=== PATIENT | male | born 1995 | race Caucasian/White ===

== ENCOUNTER 2017-07-08 23:37 | Emergency (ER) | payer OTHER ==
[2017-07-08] MEDS ORDERED: diphenhydrAMINE INJ 50 MG/ML VIAL IVP STA (23:59)
[2017-07-08] MEDS ORDERED: METOCLOPRAMIDE 10 MG/2 ML VIAL IVP STA (23:59)
[2017-07-08] MEDS ORDERED: SODIUM CHLORIDE 0.9% 1,000 ML IV ONE (23:59)
[2017-07-09 00:11] LABS: BASOPHILS % (AUTO) 0.2 %; EOSINOPHILS % (AUTO) 0.1 %; HGB - HEMOGLOBIN 16.2 g/dL (14.0-18.0); LYMPHOCYTES # (AUTO) 1.1 10^3/uL (1.5-3.5); LYMPHOCYTES % (AUTO) 9.1 %; MEAN CORPUSCULAR HEMOGLOBIN 30.7 pg (27.0-31.0); MEAN CORPUSCULAR HGB CONC 34.8 g/dL (32.0-36.0); MEAN CORPUSCULAR VOLUME 88.2 fL (80.0-94.0); MEAN PLATELET VOLUME 8.6 fL (7.4-11.4); MONOCYTES # (AUTO) 0.6 10^3/uL (0.0-1.0); MONOCYTES % (AUTO) 4.7 %; NEUTROPHILS % (AUTO) 85.9 %; PLT - PLATELET COUNT 226 10^3/uL (130-450); RED BLOOD COUNT 5.28 10^6/uL (4.70-6.10); RED CELL DISTRIBUTION WIDTH 13.3 % (12.0-15.0); WHITE BLOOD COUNT 11.7 x10^3/uL (4.8-10.8)
[2017-07-09 00:24] LABS: ALBUMIN 5.4 g/dL (3.2-5.5); ALBUMIN/GLOBULIN RATIO 1.9 (1.0-2.2); BILIRUBIN,TOTAL 2.5 mg/dL (0.2-1.0); CALCIUM 9.7 mg/dL (8.5-10.3); CREATININE 0.9 mg/dL (0.6-1.2); MAGNESIUM 1.9 mg/dL (1.7-2.8); PHOSPHORUS 3.6 mg/dL (2.5-4.6); TOTAL PROTEIN 8.3 g/dL (6.7-8.2)
--- NOTE | 2017-07-09 00:41 | CT Preliminary Report ---
Exam: CT HEAD W/O IMPRESSION: Negative CT head without contrast. [facility] SITE ID: [id number]
--- NOTE | 2017-07-09 00:42 | CT Report ---
EXAM: CT HEAD EXAM DATE: 07/09/2017 12:23 AM. CLINICAL HISTORY: Headache. Left hand weakness. COMPARISON: None. TECHNIQUE: Multiaxial CT images were obtained from the foramen magnum to the vertex. Reformats: Coron al. IV contrast: None. In accordance with CT protocol optimization, one or more of the following dose reduction techniques w ere utilized for this exam: automated exposure control, adjustment of mA and/or KV based on patient s ize, or use of iterative reconstructive technique. FINDINGS: Parenchyma: No intraparenchymal hemorrhage. No evidence of mass, midline shift, or CT findings of inf arction. [place]-white differentiation is distinct. Extraaxial Spaces: Normal for age. No subdural or epidural collections identified. Ventricles: Normal in size and position. Sinuses and Orbits: Imaged paranasal sinuses, orbits, and mastoids show no significant abnormality. Bones: No evidence of fracture or calvarial defect. Other: None. IMPRESSION: Negative CT head without contrast. [facility] Referring Provider Line: [phone] SITE ID: [id number]
[2017-07-09] MEDS ORDERED: KETOROLAC 60 MG/2 ML VIAL IVP STA (01:14)
[2017-07-09] MEDS ORDERED: ACETAMINOPHEN 500 MG TABLET PO STA (01:52)
--- NOTE | 2017-07-09 02:08 | ED Physician Documentation ---
PD HPI HEADACHE - Stated complaint Stated Complaint: HEADACHE,L SIDE WEAKNESS - Chief complaint Chief Complaint: Neuro - History obtained from History obtained from: Patient, Friend - History of Present Illness Timing - onset: How many hours ago (3) Timing - onset during: Rest Timing - details: Gradual onset, Still present Location: Front, Right Quality: Aching, Stabbing Associated symptoms: Nausea. No: Fever, Stiff neck, Vomiting, Weakness, Numbness Improved by: Rest, Dark room Worsened by: Light Contributing factors: No: Anticoagulated, Hypertension Similar symptoms before: No diagnosis Recently seen: Not recently seen - Additional information Additional information: Patient is a 22 year old male with no significant past medical history who is presenting to the emergency department for headache. patient states that it started slowly about three hours ago. Patient states that it has become progressively worse. Patient states that his hand was cramping and that his right hand keeps wanting to rest up by his neck. Upon initial evaluation in the emergency department patient is well appearing and moving all extremities with no neurological deficits. Review of Systems Constitutional: denies: Fever, Chills Eyes: reports: Photophobia Ears: reports: Reviewed and negative Nose: reports: Reviewed and negative Throat: reports: Reviewed and negative Cardiac: denies: Chest pain / pressure, Palpitations Respiratory: denies: Dyspnea, Cough, Wheezing GI: reports: Nausea. denies: Abdominal Pain, Vomiting : reports: Reviewed and negative Skin: denies: Rash, Lesions, Abrasion (s) Musculoskeletal: reports: Extremity pain. denies: Neck pain, Back pain Neurologic: reports: Numbness, Headache. denies: Syncope, Head injury, LOC Immunocompromised: denies: Immunocompromised PD PAST MEDICAL HISTORY - Past Medical History Past Medical History: No - Past Surgical History Past Surgical History: No - Present Medications Home Medications: Ambulatory Orders Medication Instructions Recorded Confirmed No Known Home Medications [No 07/08/17 07/08/17 Known Home Medications] - Allergies Allergies/Adverse Reactions: Allergies Allergy/AdvReac Type Severity Reaction Status Date / Time No Known Drug Allergies Allergy Verified 07/08/17 23:45 - Social History Does the pt smoke?: Yes Smoking Status: Current every day smoker Does the pt drink ETOH?: Yes Does the pt have substance abuse?: No - Immunizations Immunizations are current?: Yes - POLST Patient has POLST: No PD ED PE NORMAL - Vitals Vital signs reviewed: Yes - General General: Alert and oriented X 3, No acute distress - HEENT HEENT: Atraumatic, Moist mucous membranes - Neck Neck: Supple, no meningeal sign - Cardiac Cardiac: RRR, No murmur - Respiratory Respiratory: No respiratory distress - Abdomen Abdomen: Soft, Non tender, Non distended - Derm Derm: Normal color, Warm and dry, No rash - Extremities Extremities: No deformity, No tenderness to palpate, Normal ROM s pain - Neuro Neuro: Alert and oriented X 3, No motor deficit, Normal speech, Other (no right sided deficit, patient has full rom, full hip hop performers strength and full sensation) Eye Opening: To Voice Motor: Obeys Commands Verbal: Oriented GCS Score: 14 Results - Vitals Vitals: Vital Signs - 24 hr 07/08/17 07/09/17 23:42 02:03 Temperature 36.4 C L Heart Rate 82 78 Respiratory 18 18 Rate Blood Pressure 105/77 126/70 O2 Saturation 99 98 Oxygen O2 Source Room air - Labs Labs: Laboratory Tests 07/08/17 07/08/17 23:58 23:58 WBC 11.7 H RBC 5.28 Hgb 16.2 Hct 46.6 MCV 88.2 MCH 30.7 MCHC 34.8 RDW 13.3 Plt Count 226 MPV 8.6 Neut # 10.0 H Lymph # 1.1 L [place] # 0.6 Eos # 0.0 Baso # 0.0 Absolute Nucleated RBC 0.00 Nucleated RBC % 0.0 Sodium 136 Potassium 4.3 Chloride 99 L Carbon Dioxide 25 Anion Gap 12.0 BUN 18 Creatinine 0.9 Estimated GFR (MDRD) 105 Glucose 128 H Calcium 9.7 Phosphorus 3.6 Magnesium 1.9 Total Bilirubin 2.5 H AST 67 H ALT 57 Alkaline Phosphatase 56 Total Protein 8.3 H Albumin 5.4 Globulin 2.9 Albumin/Globulin Ratio 1.9 Lipase 11 L - Rads (name of study) ct head Radiology: Final report received (normal) PD MEDICAL DECISION MAKING - ED course Complexity details: reviewed old records, reviewed results, re-evaluated patient , considered differential, d/w patient ED course: patient was seen and examined at bedside. patient was well appearing and in no acute distress. IV access was gained and labs were drawn. patient had complete neurological function. CT was ordered due to patient's various complaints. [place] subarachnoid score was 0. patient was treated with toradol , bendaryl and reglan, as well as IV fluids. Patient was sent for imaging. When patient returned the results were reviewed. there was no acute abnormalities. Patient reported that his pain still persisted and was treated with tylenol 1000mg. Patient was well appearing with no sign of meniingitis. Patient required no further work up and was stable for discharge with outpatient follow up. Departure - Departure Disposition: 01 Home, Self Care Clinical Impression: Migraine Condition: Good Instructions: ED Headache Migraine Follow-Up: primary,care provider [Other] - As Needed Comments: Your diagnostics today were within normal limits. there were no major abnormalities on your CT or blood work. The two most important things you can do is to stay well hydrated and and get plenty of slepp. You can take motrin or tylenol as needed for pain, or excedrin. You should follow up with your doctor if your symptoms worsen or become more frequent.
[2017-07-09 02:28] VITALS: BP 115/56
== END 2017-07-09 02:28 | disposition home or self-care (01) ==
LOC: ED 23:37
DX: G43.909 Migraine, unspecified, not intractable, without status migrainosus (principal); F17.200 Nicotine dependence, unspecified, uncomplicated
CPT/HCPCS: 36415; 70450; 80053; 83690; 83735; 84100; 85025; 96361; 96374; 96375; 99283; 99284; A9270; J1200; J2765; 85610; 85730

== ENCOUNTER 2017-07-12 20:13 | Emergency (ER) | payer OTHER ==
[2017-07-12 20:59] LABS: MUDS CUTOFF CONCENTRATIONS CUTOFF CONC BELOW:
[2017-07-12 21:09] LABS: BILIRUBIN,URINE NEGATIVE (NEGATIVE); CLARITY,URINE CLEAR (CLEAR); GLUCOSE, URINE (UA) NEGATIVE (NEGATIVE); KETONES,URINE (UA) NEGATIVE (NEGATIVE); LEUKOCYTE ESTERASE, URINE NEGATIVE (NEGATIVE); NITRITE,URINE NEGATIVE (NEGATIVE); OCCULT BLOOD,URINE NEGATIVE (NEGATIVE); PROTEIN,URINE NEGATIVE (NEGATIVE); UROBILINOGEN,URINE 0.2 (NORMAL) E.U./dL (NORMAL)
[2017-07-12 21:11] LABS: AMPHETAMINE SCREEN,URINE NEGATIVE (NEGATIVE); BENZODIAZEPINES SCREEN, URINE NEGATIVE (NEGATIVE); COCAINE SCREEN URINE NEGATIVE (NEGATIVE); METHADONE SCREEN, URINE NEGATIVE (NEGATIVE); METHAMPHETAMINES SCREEN, URINE NEGATIVE (NEGATIVE); OPIATE SCREEN, URINE NEGATIVE (NEGATIVE); OXYCODONE SCREEN, URINE NEGATIVE (NEGATIVE); PROPOXYPHENE SCREEN, URINE NEGATIVE (NEGATIVE); TRICYCLIC ANTIDEPRESSANT,URINE NEGATIVE (NEGATIVE)
[2017-07-12 22:05] LABS: BASOPHILS % (AUTO) 0.4 %; EOSINOPHILS % (AUTO) 0.3 %; HGB - HEMOGLOBIN 15.7 g/dL (14.0-18.0); LYMPHOCYTES # (AUTO) 1.4 10^3/uL (1.5-3.5); MEAN CORPUSCULAR HEMOGLOBIN 29.3 pg (27.0-31.0); MEAN CORPUSCULAR HGB CONC 33.3 g/dL (32.0-36.0); MEAN PLATELET VOLUME 8.3 fL (7.4-11.4); MONOCYTES # (AUTO) 0.6 10^3/uL (0.0-1.0); MONOCYTES % (AUTO) 5.6 %; NEUTROPHILS # (AUTO) 9.3 10^3/uL (1.5-6.6); NEUTROPHILS % (AUTO) 81.7 %; PLT - PLATELET COUNT 229 10^3/uL (130-450); RED BLOOD COUNT 5.35 10^6/uL (4.70-6.10); WHITE BLOOD COUNT 11.4 x10^3/uL (4.8-10.8)
[2017-07-12 22:19] LABS: ALBUMIN 5.1 g/dL (3.2-5.5); ALBUMIN/GLOBULIN RATIO 1.8 (1.0-2.2); ALKALINE PHOSPHATASE 52 IU/L (42-121); ALT ALANINE AMINOTRANSFERASE 33 IU/L (10-60); AST ASPARTATE AMINOTRANSFERASE 25 IU/L (10-42); BILIRUBIN,TOTAL 1.2 mg/dL (0.2-1.0); BUN - BLOOD UREA NITROGEN 13 mg/dL (6-20); CALCIUM 9.3 mg/dL (8.5-10.3); CARBON DIOXIDE - CO2 26 mmol/L (21-32); CHLORIDE 101 mmol/L (101-111); CK- CREATINE KINASE 138 IU/L (22-269); CREATININE 0.9 mg/dL (0.6-1.2); GFR - MDRD 105 (>89); GLUCOSE 140 mg/dL (70-100); SALICYLATE < 6.0 mg/dL; SODIUM 137 mmol/L (135-145)
[2017-07-12 22:21] LABS: ACETAMINOPHEN < 10 ug/mL (10-30); LIPASE < 10 U/L (22-51)
[2017-07-12] MEDS ORDERED: SODIUM CHLORIDE 0.9% 1,000 ML IV ONE (23:22)
[2017-07-12] MEDS ORDERED: diphenhydrAMINE INJ 50 MG/ML VIAL IVP STA (23:22)
[2017-07-12] MEDS ORDERED: KETOROLAC 60 MG/2 ML VIAL IVP STA (23:22)
[2017-07-12] MEDS ORDERED: METOCLOPRAMIDE 10 MG/2 ML VIAL IVP STA (23:22)
[2017-07-13] MEDS ORDERED: SODIUM CHLORIDE 0.9% 1,000 ML IV ONE (01:25)
[2017-07-13] MEDS ORDERED: HALOPERIDOL 5 MG/ML VIAL IVP ONE (01:25)
--- NOTE | 2017-07-13 02:53 | ED Physician Documentation ---
PD HPI HEADACHE - Stated complaint Stated Complaint: CONFUSION - Chief complaint Chief Complaint: Neuro - History obtained from History obtained from: Patient - History of Present Illness Timing - onset: How many days ago (4) Timing - onset during: Rest Timing - details: Gradual onset, Intermittant Quality: Throbbing. No: Thunderclap Associated symptoms: No: Fever, Stiff neck, Nausea, Vomiting Improved by: Rest, Dark room Worsened by: Light, Noise Similar symptoms before: Work up / diagnostics, Treatment Recently seen: Emergency Dept - Additional information Additional information: Patient is a 22 year old male who is presenting to the emergency department for headache and confusion. patient was seen in the emergency department a few days prior for headache and hand numbness. Diagnostics were all within normal limits and patient was discharged in stable condition. patient states that he felt better for a couple of days but then he developed headache today and confusion. Although there is reported confusion patient is alert and oriented X 3. Patient was able to answer questions appropriately. Review of Systems Constitutional: denies: Fever, Chills Eyes: reports: Photophobia Ears: denies: Ear pain Nose: reports: Reviewed and negative Throat: reports: Reviewed and negative Cardiac: denies: Chest pain / pressure, Palpitations Respiratory: denies: Cough GI: denies: Nausea, Vomiting : reports: Reviewed and negative Neurologic: reports: Difficulty speaking, Headache. denies: Focal weakness, Numbness, Head injury PD PAST MEDICAL HISTORY - Past Surgical History Past Surgical History: No - Present Medications Home Medications: Ambulatory Orders Medication Instructions Recorded Confirmed No Known Home Medications [No 07/08/17 07/08/17 Known Home Medications] - Allergies Allergies/Adverse Reactions: Allergies Allergy/AdvReac Type Severity Reaction Status Date / Time No Known Drug Allergies Allergy Verified 07/08/17 23:45 - Social History Does the pt smoke?: Yes Smoking Status: Current every day smoker Does the pt drink ETOH?: Yes Does the pt have substance abuse?: No - Immunizations Immunizations are current?: Yes - POLST Patient has POLST: No PD ED PE NORMAL - Vitals Vital signs reviewed: Yes - General General: Alert and oriented X 3, No acute distress, Well developed/nourished - HEENT HEENT: Atraumatic, PERRL - Neck Neck: Supple, no meningeal sign - Cardiac Cardiac: RRR - Respiratory Respiratory: No respiratory distress - Abdomen Abdomen: Soft, Non tender, Non distended - Derm Derm: Normal color, Warm and dry - Extremities Extremities: No deformity - Neuro Neuro: Alert and oriented X 3, 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, No motor deficit, No sensory deficit, Normal speech Eye Opening: Spontaneous Motor: Obeys Commands Verbal: Oriented GCS Score: 15 PD ED PE EXPANDED - General General: Alert, No acute distress - HEENT HEENT: Dry mucous membranes Results - Vitals Vitals: Vital Signs - 24 hr 07/12/17 07/12/17 07/12/17 20:15 21:24 23:46 Temperature 36.0 C L Heart Rate 55 L 56 L 79 Respiratory 18 15 22 Rate Blood Pressure 123/72 124/83 H 120/79 O2 Saturation 99 98 99 07/13/17 07/13/17 07/13/17 00:42 01:18 02:16 Temperature Heart Rate 77 66 75 Respiratory 20 21 20 Rate Blood Pressure 145/87 H 110/79 92/46 L O2 Saturation 98 97 96 Oxygen O2 Source Room air - EKG (time done) 2034 Rate: Rate (enter#) (54) Rhythm: NSR [place]: Normal Ischemia: ST elevation c/w repol Compare to prior EKG: Old EKG unavailable - Labs Labs: Laboratory Tests 07/12/17 07/12/17 07/12/17 20:36 21:52 21:52 WBC 11.4 H RBC 5.35 Hgb 15.7 Hct 47.1 MCV 88.0 MCH 29.3 MCHC 33.3 RDW 13.0 Plt Count 229 MPV 8.3 Neut # 9.3 H Lymph # 1.4 L [place] # 0.6 Eos # 0.0 Baso # 0.0 Absolute Nucleated RBC 0.01 Nucleated RBC % 0.1 Sodium 137 Potassium 3.6 Chloride 101 Carbon Dioxide 26 Anion Gap 10.0 BUN 13 Creatinine 0.9 Estimated GFR (MDRD) 105 Glucose 140 H Lactic Acid Calcium 9.3 Total Bilirubin 1.2 H AST 25 ALT 33 Alkaline Phosphatase 52 Total Creatine Kinase 138 Total Protein 8.0 Albumin 5.1 Globulin 2.9 Albumin/Globulin Ratio 1.8 Lipase < 10 L TSH Urine Color LT. YELLOW Urine Clarity CLEAR Urine pH 6.0 Ur Specific [place] 1.025 Urine Protein NEGATIVE Urine Glucose (UA) NEGATIVE Urine Ketones NEGATIVE Urine Occult Blood NEGATIVE Urine Nitrite NEGATIVE Urine Bilirubin NEGATIVE Urine Urobilinogen 0.2 (NORMAL) Ur Leukocyte Esterase NEGATIVE Ur Microscopic Review NOT INDICATED Urine Culture Comments NOT INDICATED Salicylates < 6.0 Urine Opiates Screen NEGATIVE Ur Oxycodone Screen NEGATIVE Urine Methadone Screen NEGATIVE Ur Propoxyphene Screen NEGATIVE Acetaminophen < 10 L Ur Barbiturates Screen NEGATIVE Ur Tricyclics Screen NEGATIVE Ur Phencyclidine Scrn NEGATIVE Ur Amphetamine Screen NEGATIVE U Methamphetamines Scrn NEGATIVE U Benzodiazepines Scrn NEGATIVE Urine Cocaine Screen NEGATIVE U Cannabinoids Screen NEGATIVE Ethyl Alcohol < 5.0 07/12/17 07/12/17 21:52 21:52 WBC RBC Hgb Hct MCV MCH MCHC RDW Plt Count MPV Neut # Lymph # [place] # Eos # Baso # Absolute Nucleated RBC Nucleated RBC % Sodium Potassium Chloride Carbon Dioxide Anion Gap BUN Creatinine Estimated GFR (MDRD) Glucose Lactic Acid 1.4 Calcium Total Bilirubin AST ALT Alkaline Phosphatase Total Creatine Kinase Total Protein Albumin Globulin Albumin/Globulin Ratio Lipase TSH 0.72 Urine Color Urine Clarity Urine pH Ur Specific [place] Urine Protein Urine Glucose (UA) Urine Ketones Urine Occult Blood Urine Nitrite Urine Bilirubin Urine Urobilinogen Ur Leukocyte Esterase Ur Microscopic Review Urine Culture Comments Salicylates Urine Opiates Screen Ur Oxycodone Screen Urine Methadone Screen Ur Propoxyphene Screen Acetaminophen Ur Barbiturates Screen Ur Tricyclics Screen Ur Phencyclidine Scrn Ur Amphetamine Screen U Methamphetamines Scrn U Benzodiazepines Scrn Urine Cocaine Screen U Cannabinoids Screen Ethyl Alcohol PD MEDICAL DECISION MAKING - ED course Complexity details: reviewed old records, reviewed results, re-evaluated patient , considered differential, d/w patient ED course: Patient was seen and examined at bedside. patient was awake, alert and oriented with no neurological deficits. patient would mumble incoherent words but then when asked questions would answer appropriately. Patient was not ill or toxic appearing. IV access was gained and labs were drawn. Patient was told that an LP might be required, he stated that he would rather try the fluids and medications first. patient was treated with toradol, reglan, benadryl and fluid bolus. Upon re-evaluation patient stated that his headache was still there but was down to 5-6. Patient was treated with a second bolus and Haldol. Patient was observed for another two hours while he slept. patient 's headache resolved. While serious etiologies to the patient's headache were considered they were unlikely. Patient required no further inpatient work up and was stable for discharge with outpatient follow up. Departure - Departure Disposition: 01 Home, Self Care Clinical Impression: Migraine Condition: Good Instructions: ED Headache Migraine Follow-Up: Primary, care provider [Other] - Within 3 Days Comments: Your diagnostics today were within normal limits. Two of the biggest triggers for headaches are dehydration and lack of sleep. It is important that you stay well hydrated and that you get plenty of sleep. You should keep a headache journal, writing down things that you ate or activities you did prior to your headache to see if there is any causality. You should follow up with your doctor. You may return to the emergency department at any time for new, worsening or uncontrollable symptoms. Forms: Activity restrictions
[2017-07-13 03:36] VITALS: BP 101/72
== END 2017-07-13 04:25 | disposition home or self-care (01) ==
LOC: ED 20:13
DX: G43.909 Migraine, unspecified, not intractable, without status migrainosus (principal); F17.200 Nicotine dependence, unspecified, uncomplicated
CPT/HCPCS: 36415; 51701; 80053; 80306; 80307; 80320; 80329; 81003; 82550; 83605; 83690; 84443; 85025; 87040; 93005; 96361; 96374; 96375; 99284; J1200; J2765; 81001; 87086

== ENCOUNTER 2017-09-27 12:37 | Emergency (ER) | payer OTHER ==
[2017-09-27 13:56] VITALS: BP 128/73
[2017-09-27] MEDS ORDERED: DEXAMETHASONE 10 MG/ML VIAL PO STA (14:05)
--- NOTE | 2017-09-27 14:07 | ED Physician Documentation ---
PD HPI URI - Stated complaint Stated Complaint: COUGHING BLOOD - Chief complaint Chief Complaint: Heent - History obtained from History obtained from: Patient, Family - History of Present Illness Timing - onset: How many days ago (5) Timing duration: Days (5) Timing details: Gradual onset, Still present Associated symptoms: Fever, Chills, Ear pain, Nasal congestion, Sinus pain, Sore throat, Swollen nodes, Productive cough, Hemoptysis Contributing factors: Sick contact Improves by: Rest, Medication Similar symptoms before: Diagnosis (otitis) Recently seen: Clinic - Additional information Additional information: 22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 He has had a sore throat and he was seen in the [employer] [facility] diagnosed with viral URI rapid strep was negative is been placed onto him some Sudafed and ibuprofen and has some control of his symptoms. Despite this he is having some coughing paroxysms and coughed up some blood. He is into the emergency department today with hemoptysis and ear pain. He states that the blood-tinged sputum happened right after long coughing paroxysm and has not recurred. Review of Systems Constitutional: denies: Fever Eyes: denies: Decreased vision Ears: reports: Ear pain Nose: reports: Rhinorrhea / runny nose, Congestion, Sinus pressure / pain Throat: reports: Sore throat Cardiac: denies: Chest pain / pressure, Palpitations Respiratory: reports: Cough, Hemoptysis. denies: Dyspnea GI: denies: Abdominal Pain, Nausea, Vomiting : denies: Dysuria, Frequency PD PAST MEDICAL HISTORY - Past Medical History Past Medical History: No - Past Surgical History Past Surgical History: No - Present Medications Home Medications: Ambulatory Orders Medication Instructions Recorded Confirmed Azithromycin [Zithromax] 250 mg PO DAILY #6 tablet 09/27/17 - Allergies Allergies/Adverse Reactions: Allergies Allergy/AdvReac Type Severity Reaction Status Date / Time naproxen AdvReac Intermediate Nausea Verified 09/27/17 12:52 - Social History Does the pt smoke?: Yes Smoking Status: Current every day smoker Does the pt drink ETOH?: Yes Does the pt have substance abuse?: No - Immunizations Immunizations are current?: Yes - POLST Patient has POLST: No PD ED PE NORMAL - Vitals Vital signs reviewed: Yes (normal ) - General General: Alert and oriented X 3, No acute distress, Well developed/nourished - HEENT HEENT: Atraumatic, PERRL, EOMI, Other (Right TM is inflamed with rounding of the landmarks and the left is inflamed in the attic. 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, No motor deficit, No sensory deficit, Normal speech Eye Opening: Spontaneous Motor: Obeys Commands Verbal: Oriented GCS Score: 15 - Psych Psych: Normal mood, Normal affect Results - Vitals Vitals: Vital Signs - 24 hr 09/27/17 09/27/17 12:46 13:54 Temperature 36.3 C L 36.3 C L Heart Rate 78 71 Respiratory 16 18 Rate Blood Pressure 112/75 128/73 O2 Saturation 100 98 Oxygen O2 Source Room air PD MEDICAL DECISION MAKING - ED course Complexity details: considered differential, d/w patient, d/w family ED course: 22-year-old male with a sore throat cough and ear pain has otitis on examination he does have a lot of swelling in his throat is administered dexamethasone 10 mg orally and we will place him on some azithromycin. - Sepsis Event Vital Signs: Vital Signs - 24 hr 09/27/17 09/27/17 12:46 13:54 Temperature 36.3 C L 36.3 C L Heart Rate 78 71 Respiratory 16 18 Rate Blood Pressure 112/75 128/73 O2 Saturation 100 98 Oxygen O2 Source Room air Departure - Departure Disposition: 01 Home, Self Care Clinical Impression: Otitis media Qualifiers: Otitis media type: suppurative Chronicity: acute Laterality: bilateral Recurrence: not specified as recurrent Spontaneous tympanic membrane rupture: without spontaneous rupture Qualified Code(s): H66.003 - Acute suppurative otitis media without spontaneous rupture of ear drum, bilateral Condition: Stable Instructions: ED Otitis Media Acute Adult Follow-Up: [facility] [Provider Group] Prescriptions: Azithromycin [Zithromax] 250 mg PO DAILY #6 tablet
== END 2017-09-27 14:23 | disposition home or self-care (01) ==
LOC: ED 12:37
DX: H66.003 Acute suppurative otitis media without spontaneous rupture of ear drum, bilateral (principal); R04.2 Hemoptysis; F17.200 Nicotine dependence, unspecified, uncomplicated
CPT/HCPCS: 99283

== ENCOUNTER 2019-05-01 17:15 | Emergency (ER) | payer OTHER ==
[2019-05-01 18:07] LABS: BASOPHILS # (AUTO) 0.1 10^3/uL (0.0-0.1); EOSINOPHILS # (AUTO) 0.2 10^3/uL (0.0-0.7); EOSINOPHILS % (AUTO) 4.1 %; HGB - HEMOGLOBIN 15.8 g/dL (14.0-18.0); LYMPHOCYTES # (AUTO) 2.6 10^3/uL (1.5-3.5); LYMPHOCYTES % (AUTO) 45.1 %; MEAN CORPUSCULAR HEMOGLOBIN 30.7 pg (27.0-31.0); MEAN CORPUSCULAR HGB CONC 33.7 g/dL (32.0-36.0); MEAN CORPUSCULAR VOLUME 91.1 fL (80.0-94.0); MEAN PLATELET VOLUME 10.3 fL (7.4-11.4); MONOCYTES # (AUTO) 0.5 10^3/uL (0.0-1.0); MONOCYTES % (AUTO) 8.1 %; NEUTROPHILS # (AUTO) 2.4 10^3/uL (1.5-6.6); NEUTROPHILS % (AUTO) 41.4 %; PLT - PLATELET COUNT 248 10^3/uL (130-450); RED BLOOD COUNT 5.15 10^6/uL (4.70-6.10); RED CELL DISTRIBUTION WIDTH 12.4 % (12.0-15.0); WHITE BLOOD COUNT 5.8 x10^3/uL (4.8-10.8)
[2019-05-01 18:23] LABS: ALBUMIN 4.8 g/dL (3.2-5.5); ALBUMIN/GLOBULIN RATIO 1.6 (1.0-2.2); BILIRUBIN,TOTAL 1.5 mg/dL (0.2-1.0); CALCIUM 9.3 mg/dL (8.5-10.3); CREATININE 0.9 mg/dL (0.6-1.2); TOTAL PROTEIN 7.8 g/dL (6.7-8.2)
[2019-05-01 18:34] LABS: BILIRUBIN,URINE NEGATIVE (NEGATIVE); GLUCOSE, URINE (UA) NEGATIVE (NEGATIVE); KETONES,URINE (UA) NEGATIVE (NEGATIVE); LEUKOCYTE ESTERASE, URINE NEGATIVE (NEGATIVE); NITRITE,URINE NEGATIVE (NEGATIVE); OCCULT BLOOD,URINE NEGATIVE (NEGATIVE); PROTEIN,URINE NEGATIVE (NEGATIVE); UROBILINOGEN,URINE 0.2 (NORMAL) E.U./dL (NORMAL)
[2019-05-01 18:41] LABS: CLARITY,URINE CLEAR (CLEAR)
[2019-05-01] MEDS ORDERED: ONDANSETRON ODT 4 MG TABLET TL STA (18:44)
--- NOTE | 2019-05-01 19:15 | ED Physician Documentation ---
History of Present Illness - Stated complaint Stated Complaint: ABD PAIN - Chief complaint Chief Complaint: Abd Pain - History obtained from History obtained from: Patient - History of Present Illness Pain level max: 0 Pain level now: 0 Improved by: rest Worsened by: eating - Additonal information Additional information: 24-year-old male presents to the emergency department after having a cough congestion, runny nose for the past week. Last night began to have nausea, vomiting, diarrhea. Currently feeling better. Does not have any medical problems. No fevers. No blood in the stool or the vomit. Has been around coworkers that are sick. Review of Systems Constitutional: denies: Fever, Chills Nose: reports: Rhinorrhea / runny nose, Congestion Cardiac: denies: Chest pain / pressure Respiratory: denies: Cough GI: reports: Nausea, Vomiting, Diarrhea. denies: Abdominal Pain Skin: denies: Rash Musculoskeletal: denies: Neck pain, Back pain Neurologic: denies: Headache PD PAST MEDICAL HISTORY - Past Medical History Past Medical History: No - Past Surgical History Past Surgical History: No - Present Medications Home Medications: Ambulatory Orders Medication Instructions Recorded Confirmed Azithromycin [Zithromax] 250 mg PO DAILY #6 tablet 09/27/17 Ondansetron Odt [Zofran] 4 mg TL Q6H PRN #10 tablet 05/01/19 - Allergies Allergies/Adverse Reactions: Allergies Allergy/AdvReac Type Severity Reaction Status Date / Time naproxen AdvReac Intermediate Nausea Verified 05/01/19 17:36 - Social History Does the pt smoke?: Yes Smoking Status: Current every day smoker Does the pt drink ETOH?: Yes Does the pt have substance abuse?: No - Immunizations Immunizations are current?: Yes - POLST Patient has POLST: No PD ED PE NORMAL - Vitals Vital signs reviewed: Yes - General General: Alert and oriented X 3, No acute distress, Well developed/nourished - HEENT HEENT: Ears normal, Moist mucous membranes, Pharynx benign, Other (Clear rhinorrhea) - Neck Neck: Supple, no meningeal sign - Cardiac Cardiac: RRR, Strong equal pulses - Respiratory Respiratory: No respiratory distress, Clear bilaterally - Abdomen Abdomen: Soft, Non tender, Non distended - Back Back: No CVA TTP - Derm Derm: Warm and dry, No rash - Neuro Neuro: Alert and oriented X 3 - Psych Psych: Normal mood, Normal affect Results - Vitals Vitals: Vital Signs - 24 hr 05/01/19 05/01/19 17:32 19:38 Temperature 36.2 C L 37.2 C Heart Rate 77 72 Respiratory 20 14 Rate Blood Pressure 126/75 112/65 O2 Saturation 98 97 Oxygen O2 Source Room air - Labs Labs: Laboratory Tests 05/01/19 05/01/19 05/01/19 18:02 18:02 18:26 WBC 5.8 RBC 5.15 Hgb 15.8 Hct 46.9 MCV 91.1 MCH 30.7 MCHC 33.7 RDW 12.4 Plt Count 248 MPV 10.3 Neut # (Auto) 2.4 Lymph # (Auto) 2.6 [place] # (Auto) 0.5 Eos # (Auto) 0.2 Baso # (Auto) 0.1 Absolute Nucleated RBC 0.00 Nucleated RBC % 0.0 Sodium 140 Potassium 4.0 Chloride 101 Carbon Dioxide 28 Anion Gap 11.0 BUN 14 Creatinine 0.9 Estimated GFR (MDRD) 103 Glucose 87 Calcium 9.3 Total Bilirubin 1.5 H AST 21 ALT 20 Alkaline Phosphatase 60 Total Protein 7.8 Albumin 4.8 Globulin 3.0 Albumin/Globulin Ratio 1.6 Lipase 24 Urine Color YELLOW Urine Clarity CLEAR Urine pH 6.0 Ur Specific [place] >=1.030 H Urine Protein NEGATIVE Urine Glucose (UA) NEGATIVE Urine Ketones NEGATIVE Urine Occult Blood NEGATIVE Urine Nitrite NEGATIVE Urine Bilirubin NEGATIVE Urine Urobilinogen 0.2 (NORMAL) Ur Leukocyte Esterase NEGATIVE Ur Microscopic Review NOT INDICATED Urine Culture Comments NOT INDICATED PD MEDICAL DECISION MAKING - ED course Complexity details: reviewed results, re-evaluated patient, considered differential, d/w patient, d/w family ED course: Patient with what appears to be a viral syndrome complicated by likely viral gastroenteritis. Feels much better after Zofran. Tolerating p.o. without difficulty. No significant lab abnormalities. Patient is well-appearing, nontoxic. No evidence of pneumonia or sepsis. We will continue supportive care and have him follow-up with his doctor. Patient counseled regarding signs and symptoms for which I believe and urgent re-evaluation would be necessary. Patient with good understanding of and agreement to plan and is comfortable going home at this time This document was made in part using voice recognition software. While efforts are made to proofread this document, sound alike and grammatical errors may occur. Departure - Departure Disposition: 01 Home, Self Care Clinical Impression: Viral syndrome Vomiting Qualifiers: Vomiting type: unspecified Vomiting Intractability: non-intractable Nausea presence: with nausea Qualified Code(s): R11.2 - Nausea with vomiting, unspecified Condition: Good Instructions: ED Diet Vomiting Diarrhea, ED Viral Syndrome Follow-Up: your,doctor in 1 week [Other] Prescriptions: Ondansetron Odt [Zofran] 4 mg TL Q6H PRN #10 tablet PRN Reason: Nausea / Vomiting Comments: Use the Zofran as needed for nausea and vomiting. Return if you worsen. Follow-up with your doctor for further care. Drink plenty of fluids. Discharge Date/Time: 05/01/19 19:39
[2019-05-01 19:38] VITALS: BP 112/65
== END 2019-05-01 19:39 | disposition home or self-care (01) ==
LOC: ED 17:15
DX: B34.9 Viral infection, unspecified (principal); R11.2 Nausea with vomiting, unspecified; R19.7 Diarrhea, unspecified; F17.200 Nicotine dependence, unspecified, uncomplicated
CPT/HCPCS: 36415; 80053; 81003; 83690; 85025; 99283; 99284; Q0162; 81001; 87086

== ENCOUNTER 2022-01-15 10:38 | Emergency (ER) | payer OTHER ==
[2022-01-15 11:06] VITALS: BP 128/82
--- NOTE | 2022-01-15 11:59 | ED Physician Documentation ---
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 Mild cough. He is not short of breath. Review of Systems Constitutional: reports: Chills. denies: Fever, Myalgias, Fatigue Nose: reports: Rhinorrhea / runny nose, Congestion, Epistaxis Throat: reports: Sore throat Respiratory: reports: Cough. denies: Dyspnea PD PAST MEDICAL HISTORY - Past Surgical History Past Surgical History: No - Present Medications Home Medications: Ambulatory Orders Medication Instructions Recorded Confirmed Guaifenesin/Pseudoephedrne HCl 1 each PO BID PRN #20 tab 01/15/22 [Mucinex D ER 600-60 mg Tablet] - Allergies Allergies/Adverse Reactions: Allergies Allergy/AdvReac Type Severity Reaction Status Date / Time naproxen AdvReac Intermediate Nausea Verified 01/15/22 11:06 - Social History Does the pt smoke?: Yes Smoking Status: Current every day smoker Does the pt drink ETOH?: Yes Does the pt have substance abuse?: No - Immunizations Immunizations are current?: Yes - POLST Patient has POLST: No PD ED PE NORMAL - Vitals Vital signs reviewed: Yes - General General: Alert and oriented X 3, No acute distress - HEENT HEENT: PERRL, EOMI, Pharynx benign - Neck Neck: Supple, no meningeal sign, No bony TTP - Cardiac Cardiac: RRR, No murmur - Respiratory Respiratory: No respiratory distress, Clear bilaterally - Abdomen Abdomen: Non tender - Back Back: No CVA TTP, No spinal TTP - Derm Derm: Normal color, Warm and dry - Extremities Extremities: No edema, No calf tenderness / cord - Neuro Neuro: Alert and oriented X 3, Normal speech Results - Vitals Vitals: Vital Signs - 24 hr 01/15/22 11:01 Temperature 36.5 C Heart Rate 70 Respiratory 16 Rate Blood Pressure 128/82 H O2 Saturation 98 Oxygen O2 Source Room air PD MEDICAL DECISION MAKING - ED course ED course: 26-year-old gentleman with viral URI, no concerning symptoms or findings on exam. Normal vital signs. Conservative care and a decongestant was advised as well as return precautions. He declined COVID testing. Departure - Departure Disposition: 01 Home, Self Care Clinical Impression: Viral URI Condition: Good Record reviewed to determine appropriate education?: Yes Instructions: ED Viral Syndrome Prescriptions: Guaifenesin/Pseudoephedrne HCl [Mucinex D ER 600-60 mg Tablet] 1 each PO BID PRN #20 tab PRN Reason: congestion Comments: As discussed, your symptoms are consistent with a viral upper respiratory infection. I am writing for prescription decongestant. Drink plenty of fluids. Wash your hands well. Return for new or worsening symptoms or if not better over the next 5 days or so. Forms: Activity restrictions
== END 2022-01-15 12:16 | disposition home or self-care (01) ==
LOC: ED 10:38
DX: J06.9 Acute upper respiratory infection, unspecified (principal); F17.200 Nicotine dependence, unspecified, uncomplicated
CPT/HCPCS: 99282